=== PATIENT | female | born 1930 | race Caucasian/White ===

== ENCOUNTER → 2017-07-09 | Day surgery (SDC) | payer OTHER ==
[~2017-07-09] VITALS: Ht 158.8 cm; Wt 57.0 kg
[~2017-07-09] MED LIST: AMOX500C3 PO; CALC500C70 PO; DILT240C57 PO; LEVO75TA5 PO; LIDOCAINE HCL 2% 2 ML VIAL (20MG/ML) ONE; METO50TA16 PO; MULT-506 PO; PRLSR20 PO; PROPOFOL IV EMULSION 10 MG/ML 20 ML VIAL IV ONE; SODIUM CHLORIDE 0.9% 500ML 500 ML IV ONE; VITD
--- NOTE | 2017-07-09 10:02 | Endo History and Physical ---
History & Physical Date of Service: Jul 09, 2017. Chief Complaint: melena Referring Physician: Dr. Kline History of Present Illness melena x 1 week Physical Exam General Appearance: WD/WN, no apparent distress Assessment and Plan EGD today
[2017-07-09 10:24] VITALS: Ht 158.8 cm; Wt 57.0 kg
--- NOTE | 2017-07-09 10:52 | Discharge Instructions ---
Endoscopy Patient Instructions Date / Procedure(s) Performed Jul 09, 2017. EGD Allergy Information Coded Allergies: Celecoxib (Unverified Allergy, Severe, PSY COMPLICATIONS, 07/09/17) Sulindac (Unverified Allergy, Severe, MULTIPLE REACTIONS, 07/09/17) Levocetirizine (Unverified Adverse Reaction, Intermediate, SEVERE HEAD ACHES, 07/09/17) Uncoded Allergies: ASA (Adverse Reaction, Unknown, BLEEDING, 07/09/17) Discharge Date / Findings Jul 09, 2017. Large cratered non-bleeding ulcer in the duodenal bulb with multiple smaller gastric ulcers Medication Instructions Stopped Medication(s): PCN Restart Stopped Medication(s): OK to resume home medications No anti-inflammatory medications! Take omeprazole 20 mg twice a day until repeat endoscopy is performed Provider Instructions Activity Restrictions - No exercising or heavy lifting for 24 hours. - Do not drink alcohol the day of the procedure. - Do not drive a car or operate machinery until the day after the procedure. - Do not make any important decisions or sign important papers in 24 hours after the procedure. Following Day: - Return to full activity which may include returning to work/school. Diet Start your diet with liquids and light foods (jello, soup, juice, toast). Then eat your usual diet if not nauseated. Treatment For Common After Affects For mild abdominal pain, bloating, or excessive gas: - Rest - Eat lightly - Lie on right side Follow-Up Information Follow-up with DR. LOMAX as scheduled REPEAT ENDOSCOPY IN 8 WEEKS to CHECK FOR HEALING Anesthesia Information What You Should Know You have had a procedure that required some medicine to reduce anxiety and discomfort. This treatment is called moderate sedation. After receiving the treatment, you may be sleepy, but you will be able to breathe on your own. The effects of the treatment may last for several hours. Follow these instructions along with Activity/Diet recommendations noted above: * Do NOT do anything where dizziness or clumsiness would be dangerous. * Rest quietly at home today, then you can be up and about tomorrow. * Have a responsible person stay with you the rest of today. * You may have had an I.V. today. If so, you may take the dressing off later today. Recommendations Call your doctor if: * Trouble breathing * Continuous vomiting for more than 24 hours * Temperature above 101 degrees * Severe abdominal pain or bloating * Pain not relieved by pain medicine ordered * There is increased drainage or redness from any incision * A large amount of rectal bleeding greater than 2-3 tablespoons. (If you had a polyp/s removed or have hemorrhoids, a small amount of blood - from the rectum is to be expected.) * You have any unanswered questions or concerns. IN THE EVENT OF A SERIOUS EMERGENCY, GO TO THE NEAREST EMERGENCY ROOM Your discharge instructions were prepared by provider Erin Reilly. Patient Instructions Signature Page Meche Delatorre Patient (or Guardian) Signature/Date: I have read and understand the instructions given to me by my caregivers. Caregiver/RN/Doctor Signature/Date: The above-named patient and/or guardian has received patient instructions on this date. + Original Patient Signature Page (only) stays with chart. Please make copy for patient.
--- NOTE | 2017-07-09 10:56 | GI REPORT ---
Procedure Date: 07/09/2017 10:39 AM Procedure: Upper GI endoscopy Indications: Melena Medicines: Propofol per Anesthesia Complications: No immediate complications. Estimated blood loss: Minimal. Estimated Blood Loss: Estimated blood loss was minimal. Procedure: Pre-Anesthesia Assessment: - Prior to the procedure, a History and Physical was performed, and patient medications, allergies and sensitivities were reviewed. The patient's tolerance of previous anesthesia was reviewed. - The risks and benefits of the procedure and the sedation options and risks were discussed with the patient. All questions were answered and informed consent was obtained. - Patient identification and proposed procedure were verified prior to the procedure by the physician and the nurse. The procedure was verified in the pre-procedure area in the procedure room. - Mental Status Examination: alert and oriented. Airway Examination: normal oropharyngeal airway and neck mobility. Respiratory Examination: clear to auscultation. CV Examination: normal. Abdominal Examination: bowel sounds present, abdomen soft and non-tender, no masses or organomegaly noted. - ASA Grade Assessment: III - A patient with severe systemic disease. After obtaining informed consent, the endoscope was passed under direct vision. Throughout the procedure, the patient's blood pressure, pulse, and oxygen saturations were monitored continuously. The scope was introduced through the mouth, and advanced to second part of duodenum. After obtaining informed consent, the endoscope was passed under direct vision. Throughout the procedure, the patient's blood pressure, pulse, and oxygen saturations were monitored continuously.The upper GI endoscopy was accomplished without difficulty. The patient tolerated the procedure well. Findings: The examined esophagus was tortuous. A large hiatal hernia was present. Many non-bleeding superficial gastric ulcers were found in the gastric antrum. Biopsies were taken with a cold forceps for Helicobacter pylori testing. Verification of patient identification for the specimen was done by the physician and nurse using the patient's name and date. Estimated blood loss was minimal. One non-bleeding cratered duodenal ulcer was found in the duodenal bulb. Impression: - Tortuous esophagus. Non-obstructing schatzki ring. Dilated with scope passage. - Large hiatal hernia. - Non-bleeding gastric ulcers. Biopsied. - One large non-bleeding duodenal ulcer. Recommendation: - Await pathology results. - Follow an antireflux regimen. - Use Prilosec (omeprazole) 20 mg PO BID. - Repeat upper endoscopy in 8 weeks to check healing. - No aspirin, ibuprofen, naproxen, or other non-steroidal anti-inflammatory drugs. - Return to primary care physician as previously scheduled. - Discharge patient to home. Erin Reilly D.O. Erin Reilly, 07/09/2017 10:56:07 AM This report has been signed electronically. Note Initiated On: 07/09/2017 10:39 AM I attest to the content of the Intraoperative Record and orders documented therein, exceptions below
[2017-07-09 11:24] VITALS: BP 146/93; PULSE 72; O2SAT 98
--- NOTE | 2017-07-09 11:30 | Anesthesiology Progress Note ---
Anesthesia Post Op Note Date & Time Jul 09, 2017 at 11:29 Vital Signs Pain Intensity: 0 Vital Signs Past 12 Hours Date Time Temp Pulse Resp B/P (MAP) Pulse Ox O2 Delivery O2 Flow Rate FiO2 07/09/17 11:09 71 20 146/93 (110) 99 07/09/17 10:53 74 20 93/50 (64) 98 07/09/17 10:09 36.4 80 20 184/80 (114) 98 Notes Mental Status: alert / awake / arousable, participated in evaluation Pt Amnestic to Procedure: Yes Nausea / Vomiting: adequately controlled Pain: adequately controlled Airway Patency, RR, SpO2: stable & adequate BP & HR: stable & adequate Hydration State: stable & adequate Anesthetic Complications: no major complications apparent
== END | disposition home or self-care (01) ==
LOC: C.GI 09:41
PROVIDERS: ATTEND Internal Medicine
DX: K92.1 Melena (principal); K44.9 Diaphragmatic hernia without obstruction or gangrene; K25.9 Gastric ulcer, unspecified as acute or chronic, without hemorrhage or perforation; K29.50 Unspecified chronic gastritis without bleeding; I12.9 Hypertensive chronic kidney disease with stage 1 through stage 4 chronic kidney disease, or unspecified chronic kidney disease; N18.3 Chronic kidney disease, stage 3 (moderate); M19.90 Unspecified osteoarthritis, unspecified site; Z79.82 Long term (current) use of aspirin; Z90.89 Acquired absence of other organs; Z79.899 Other long term (current) drug therapy; F17.200 Nicotine dependence, unspecified, uncomplicated

== ENCOUNTER → 2017-08-31 | Day surgery (SDC) | payer OTHER ==
[2017-08-22 09:22] VITALS: Ht 157.5 cm; Wt 54.5 kg
[~2017-08-31] VITALS: Ht 157.5 cm; Wt 54.5 kg
[~2017-08-31] MED LIST changes: +ACET-749 PO; -AMOX500C3 PO; -CALC500C70 PO; +CALC600T9 PO; +DILT120C68 PO; -DILT240C57 PO; +ERGO500037 PO; +MIDAZOLAM HCL 1 MG/ML 2ML VIAL ONE; +OMEP20CA9 PO; +ONDANSETRON INJ 2 MG/ML 2 ML VIAL ONE; -PRLSR20 PO; +SIME80CH PO; -VITD
--- NOTE | 2017-08-31 08:56 | Endo History and Physical ---
History & Physical Date of Service: Aug 31, 2017. Chief Complaint: Hx duodenal ulcer Referring Physician: Ryley Kline History of Present Illness f/u of ulcer Past Surgical History Hx Cardiac Surgery: No Hx Internal Defibrillator: No Hx Pacemaker: No Hx Abdominal Surgery: Yes (APPY) Hx of Implantable Prosthesis: No Hx Post-Op Nausea and Vomiting: No Hx Cancer Surgery: Yes (MELANOMA REMOVED) Hx Thoracic Surgery: No Hx Orthopedic: No Hx Urinary Tract Surgery: No Family History None Social History Smoking Status: Never Smoker Hx Substance Use: No Hx Alcohol Use: No Allergies Coded Allergies: Celecoxib (Unverified Allergy, Severe, PSY COMPLICATIONS, 08/22/17) Sulindac (Unverified Allergy, Severe, MULTIPLE REACTIONS, 08/22/17) Levocetirizine (Unverified Adverse Reaction, Intermediate, SEVERE HEAD ACHES, 08/22/17) Uncoded Allergies: ASA (Adverse Reaction, Unknown, BLEEDING, 07/09/17) Current Medications Reported Home Medications Medications Dose Route/Sig Max Daily Dose Days Date Category Vitamin D 66164 Unit (Ergocalciferol) 50,000 Unit Cap 50,000 Unit PO WK 08/22/17 Reported Gas-X (Simethicone) 80 Mg Chw 1 Dose PO DIRECTED PRN 08/22/17 Reported Prilosec (Omeprazole) 20 Mg Cap 20 Mg PO QAM 08/22/17 Reported Lopressor (Metoprolol Tartrate) 50 Mg Tab 50 Mg PO BID 08/22/17 Reported Levothyroxine Sodium 75 Mcg Tab 1 Tab PO QAM 08/22/17 Reported Tiazac (Diltiazem HCl) 120 Mg Capcr 120 Mg PO DAILY AT NOON 08/22/17 Reported Calcium + D (Calcium Carbonate-Vitamin D) 1 Tab Tab 1 Tab PO BID 08/22/17 Reported Tylenol W/Codeine #3 (Acetaminophen/Codeine Phosphate) 300 Mg/30 Mg Tab 2 Tab PO Q6H PRN 08/22/17 Reported Vital Signs Weight (Kilograms): 54.55 Height (Feet): 5 Height (Inches): 2 Physical Exam General Appearance: WD/WN, no apparent distress Assessment and Plan EGD today
--- NOTE | 2017-08-31 09:44 | Discharge Instructions ---
Endoscopy Patient Instructions Date / Procedure(s) Performed Aug 31, 2017. EGD Allergy Information Coded Allergies: Celecoxib (Unverified Allergy, Severe, PSY COMPLICATIONS, 08/22/17) Sulindac (Unverified Allergy, Severe, MULTIPLE REACTIONS, 08/22/17) Levocetirizine (Unverified Adverse Reaction, Intermediate, SEVERE HEAD ACHES, 08/22/17) Uncoded Allergies: ASA (Adverse Reaction, Unknown, BLEEDING, 07/09/17) Discharge Date / Findings Aug 31, 2017. large hiatal hernia; healed ulcer Medication Instructions Restart Stopped Medication(s): OK to resume home medications Provider Instructions Activity Restrictions - No exercising or heavy lifting for 24 hours. - Do not drink alcohol the day of the procedure. - Do not drive a car or operate machinery until the day after the procedure. - Do not make any important decisions or sign important papers in 24 hours after the procedure. Following Day: - Return to full activity which may include returning to work/school. Diet Start your diet with liquids and light foods (jello, soup, juice, toast). Then eat your usual diet if not nauseated. Treatment For Common After Affects For mild abdominal pain, bloating, or excessive gas: - Rest - Eat lightly - Lie on right side Follow-Up Information Follow-up with Ryley Kline as scheduled Anesthesia Information What You Should Know You have had a procedure that required some medicine to reduce anxiety and discomfort. This treatment is called moderate sedation. After receiving the treatment, you may be sleepy, but you will be able to breathe on your own. The effects of the treatment may last for several hours. Follow these instructions along with Activity/Diet recommendations noted above: * Do NOT do anything where dizziness or clumsiness would be dangerous. * Rest quietly at home today, then you can be up and about tomorrow. * Have a responsible person stay with you the rest of today. * You may have had an I.V. today. If so, you may take the dressing off later today. Recommendations Call your doctor if: * Trouble breathing * Continuous vomiting for more than 24 hours * Temperature above 101 degrees * Severe abdominal pain or bloating * Pain not relieved by pain medicine ordered * There is increased drainage or redness from any incision * A large amount of rectal bleeding greater than 2-3 tablespoons. (If you had a polyp/s removed or have hemorrhoids, a small amount of blood - from the rectum is to be expected.) * You have any unanswered questions or concerns. IN THE EVENT OF A SERIOUS EMERGENCY, GO TO THE NEAREST EMERGENCY ROOM Your discharge instructions were prepared by provider Erin Reilly. Patient Instructions Signature Page Meche Delatorre Patient (or Guardian) Signature/Date: I have read and understand the instructions given to me by my caregivers. Caregiver/RN/Doctor Signature/Date: The above-named patient and/or guardian has received patient instructions on this date. + Original Patient Signature Page (only) stays with chart. Please make copy for patient.
--- NOTE | 2017-08-31 09:49 | GI REPORT ---
Procedure Date: 08/31/2017 9:33 AM Procedure: Upper GI endoscopy Indications: Follow-up of acute duodenal ulcer Medicines: Propofol per Anesthesia Complications: No immediate complications. Estimated blood loss: None. Estimated Blood Loss: Estimated blood loss: none. Procedure: Pre-Anesthesia Assessment: - Prior to the procedure, a History and Physical was performed, and patient medications, allergies and sensitivities were reviewed. The patient's tolerance of previous anesthesia was reviewed. - The risks and benefits of the procedure and the sedation options and risks were discussed with the patient. All questions were answered and informed consent was obtained. - Patient identification and proposed procedure were verified prior to the procedure by the physician and the nurse. The procedure was verified in the pre-procedure area in the procedure room. - Mental Status Examination: alert and oriented. Airway Examination: normal oropharyngeal airway and neck mobility. Respiratory Examination: clear to auscultation. CV Examination: normal. Abdominal Examination: bowel sounds present, abdomen soft and non-tender, no masses or organomegaly noted. - ASA Grade Assessment: III - A patient with severe systemic disease. After obtaining informed consent, the endoscope was passed under direct vision. Throughout the procedure, the patient's blood pressure, pulse, and oxygen saturations were monitored continuously. The scope was introduced through the mouth, and advanced to the second part of duodenum. The upper GI endoscopy was accomplished without difficulty. The patient tolerated the procedure well. Findings: The esophagus was normal. A large hiatal hernia was present. The examined duodenum was normal. Impression: - Normal esophagus. - Large hiatal hernia. - Normal examined duodenum. - No specimens collected. Recommendation: - Follow an antireflux regimen. - Use a proton pump inhibitor PO daily. - Return to primary care physician as previously scheduled. - Discharge patient to home. Erin Reilly D.O. Erin Reilly DO 08/31/2017 9:48:44 AM This report has been signed electronically. Note Initiated On: 08/31/2017 9:33 AM I attest to the content of the Intraoperative Record and orders documented therein, exceptions below
--- NOTE | 2017-08-31 10:13 | Anesthesiology Progress Note ---
Anesthesia Post Op Note Date & Time Aug 31, 2017 at 10:13 Vital Signs Pain Intensity: 0 Vital Signs Past 12 Hours Date Time Temp Pulse Resp B/P (MAP) Pulse Ox O2 Delivery O2 Flow Rate FiO2 08/31/17 10:04 65 16 151/85 (107) 97 Room Air 08/31/17 09:49 60 16 110/62 (78) 98 Room Air 08/31/17 08:56 36.2 99 20 169/76 (107) 99 Room Air Notes Mental Status: alert / awake / arousable, participated in evaluation Pt Amnestic to Procedure: Yes Nausea / Vomiting: adequately controlled Pain: adequately controlled Airway Patency, RR, SpO2: stable & adequate BP & HR: stable & adequate Hydration State: stable & adequate Anesthetic Complications: no major complications apparent
[2017-08-31 10:19] VITALS: BP 155/81; PULSE 68; O2SAT 99
== END | disposition home or self-care (01) ==
LOC: C.GI 08:25
PROVIDERS: ATTEND Internal Medicine
DX: Z09 Encounter for follow-up examination after completed treatment for conditions other than malignant neoplasm (principal); K44.9 Diaphragmatic hernia without obstruction or gangrene; M19.90 Unspecified osteoarthritis, unspecified site; I10 Essential (primary) hypertension; Z90.49 Acquired absence of other specified parts of digestive tract; Z85.820 Personal history of malignant melanoma of skin